=== PATIENT | male | born 1990 ===

== ENCOUNTER 2016-09-17 16:21 | Observation (INO) | payer OTHER ==
[2016-09-17 16:29] VITALS: BP 121/73; PULSE 84; RESP 18; TEMP 97.7; O2SAT 99
[2016-09-17] MEDS ORDERED: Sodium Chloride 0.9% 1,000 ML IV STA (16:46)
[2016-09-17 17:23] LABS: BASO % 0.3 % (0.0-2.0); HEMATOCRIT 45.5 % (35.0-51.0); LYMPH % 11.7 % (20.0-40.0); MEAN CELL VOLUME 94.7 fl (80.0-94.0); MEAN CORPUSCULAR HEMOGLOBIN 32.9 pg (27.0-31.0); MEAN CORPUSCULAR HGB CONC 34.7 g/dL (33.0-37.0); MEAN PLATELET VOLUME 8.2 fl (7.2-11.7); MONO # 0.7 K/uL (0.0-0.8); MONO % 7.6 % (0.0-10.0); NEUT # 7.2 K/uL (1.8-7.0); NEUT % 80.4 % (50.0-75.0); NRBC % 0.1 % (0.0-0.0); RED CELL DISTRIBUTION WIDTH 14.5 % (11.5-14.5)
[2016-09-17 17:34] LABS: ALB/GLOB RATIO 1.5 (1.0-2.1); ALCOHOL SERUM < 10 mg/dl (0-10); ALKALINE PHOSPHATASE 86 U/L (38-126); ALT/SGPT 35 U/L (21-72); AST/SGOT 34 U/L (17-59); BILIRUBIN,TOTAL 0.7 mg/dl (0.2-1.3); BLOOD UREA NITROGEN 18 mg/dl (9-20); CALCIUM 9.5 mg/dL (8.4-10.2); CARBON DIOXIDE 25 mmol/L (22-30); CHLORIDE 99 mmol/L (98-107); GFR AFRICAN-AMERICAN > 60; GLUCOSE,RANDOM 91 mg/dL (75-110); POTASSIUM 3.6 MMOL/L (3.6-5.0); SODIUM 140 mmol/l (132-148); TOTAL PROTEIN 8.4 G/DL (6.3-8.2)
--- NOTE | 2016-09-17 17:42 | ED PDOC ---
HPI: Psych/Substance Abuse Time Seen by Provider: 09/17/16 16:25 Chief Complaint (Nursing): Psychiatric Evaluation Chief Complaint (Provider): Psychiatric Evaluation History Per: Patient History/Exam Limitations: no limitations Current Symptoms Are (Timing): Still Present Additional Complaint(s): 16:40 Unruly Geiger is a 26 year old male that was sent to the ED from a [facility] clinic for further evaluation of his complaints of nausea and vomiting. Patient reports that he went out drinking last night and had 6 beers, and that upon coming home he was unable to fall asleep. Patient states that in order to relax he decided to take 6 pills of aspirin and one pill of Tylenol, but that because they were "not working," so he decided to take 6 pills of Flagyl he has from a previous Rx. Upon waking up he began to experience nausea and vomiting, at which point he went to the nearby clinic. He denies any homicidal or suicidal evaluations, and states that he only took the medications "to relax." Past Medical History Reviewed: Historical Data, Nursing Documentation, Vital Signs Vital Signs: Last Vital Signs Temp 97.7 F 09/17/16 16:23 Pulse 84 09/17/16 16:23 Resp 18 09/17/16 16:23 BP 121/73 09/17/16 16:23 Pulse Ox 99 09/17/16 16:23 - Family History Family History: States: Unknown Family Hx - Allergies Allergies/Adverse Reactions: Allergies Allergy/AdvReac Type Severity Reaction Status Date / Time No Known Allergies Allergy Verified 09/17/16 16:23 Review of Systems Gastrointestinal: Positive for: Nausea, Vomiting Psych: Negative for: Suicidal ideation (no SI/HI) Physical Exam - Reviewed Nursing Documentation Reviewed: Yes Vital Signs Reviewed: Yes - Physical Exam Appears: Positive for: Non-toxic, No Acute Distress Head Exam: Positive for: ATRAUMATIC, NORMOCEPHALIC Skin: Positive for: Normal Color, Warm Cardiovascular/Chest: Positive for: Regular Rate, Rhythm. Negative for: Murmur Respiratory: Positive for: Normal Breath Sounds. Negative for: Respiratory Distress Gastrointestinal/Abdominal: Positive for: Soft. Negative for: Tenderness Neurologic/Psych: Positive for: Alert, Oriented - Laboratory Results Result Diagrams: 09/17/16 17:11 09/17/16 17:11 - ECG O2 Sat by Pulse Oximetry: 99 (RA) Pulse Ox Interpretation: Normal Medical Decision Making Medical Decision Makin:45 Impression: Nausea/Vomiting Initial Plan: * Urine Drug Screen * Salicylate * Acetaminophen * CBC/COMP * Zofran 4 mg IV * Sodium Chloride 1000 mL at 1000 mLs/hr * Crisis Evaluation * Case discussed with poison control who agreed with management at this time. Salicylate level elevated, poison control recommenced repeat in 2 hours. * Repeat level trending down, now 26.7. Poison contacted once again and agreed Pt medically cleared at this time. Pt educated on all results and dangers of taking medications not as prescribed, and multiple medications of anything at anytime. Pt demonstrated full understanding. * Pt underwent crisis eval upon clearance, see note. Scribe Attestation: Documented by Tamiko Kirkland, acting as a scribe for Vicky Shaw PA-C. Provider Scribe Attestation: All medical record entries made by the Scribe were at my direction and personally dictated by me. I have reviewed the chart and agree that the record accurately reflects my personal performance of the history, physical exam, medical decision making, and the department course for this patient. I have also personally directed, reviewed, and agree with the discharge instructions and disposition. Disposition - Clinical Impression Clinical Impression: Alcohol-induced mood disorder - Patient ED Disposition Is Patient to be Admitted: No - Disposition Disposition: Routine/Home Disposition Time: 21:18 Condition: STABLE
[2016-09-20 11:38] LABS: THC 50 URINE Negative [50,] (Negative)
== END 2016-09-17 20:48 | disposition home or self-care (01) ==
LOC: H.ER 16:21 → H.EROBSV 18:35
PROVIDERS: ADMIT Emergency Medicine; ATTEND Emergency Medicine
DX: F10.94 Alcohol use, unspecified with alcohol-induced mood disorder (principal)